=== PATIENT | female | born 1975 | race Two or more races ===

== ENCOUNTER 2022-12-29 08:47 | Outpatient (REF) | payer OTHER, SELFPAY ==
[2022-12-29 10:14] LABS: MANUAL DIFF FLAG NO
[2022-12-29 10:53] LABS: Basophils Percent Auto 0.3 % (0-2); Eosinophils Percent Auto 0.3 % (0-4); Hematocrit 39.7 % (37.0-47.0); Hemoglobin 12.8 g/dl (12.0-16.0); Imm Gran Abs Auto 0.01 X10*3/uL (0.00-0.03); Imm Gran Pct Auto 0.2 % (0.0-0.4); Lymphocytes Absolute Auto 2.8 X10*3/uL (1.2-4.9); Lymphocytes Percent Auto 47.6 % (20-40); Mean Corpuscular HGB Conc 32.2 g/dl (31.0-35.0); Mean Corpuscular Hemoglobin 28.7 pg (27.0-33.0); Mean Platelet Volume 9.7 fL (9.4-12.3); Monocytes Absolute Auto 0.4 X10*3/uL (0.1-1.2); Monocytes Percent Auto 6.1 % (2-11); Neutrophils Absolute Auto 2.7 x10*3/uL (2.0-8.3); Neutrophils Percent Auto 45.5 % (45-73); Platelet Count 355 X10*3/uL (160-400); Red Blood Count 4.46 X10*6/uL (4.20-5.50); Red Cell Distribution Width 12.9 % (11.0-16.0); White Blood Count 5.9 X10*3/uL (4.8-10.8)
[2022-12-29 11:41] LABS: Alanine Aminotransferase 15 U/L (0-31); Alkaline Phosphatase 89 U/L (39-117); Anion Gap 11 (12-20); Aspartate Amino Transferase 18 U/L (5-31); Bilirubin Total 0.7 mg/dL (0.0-1.0); Blood Urea Nitrogen 9 mg/dL (9-16); C Reactive Protein 0.28 mg/dL (< or = 0.50); Calcium 9.5 mg/dL (8.4-10.2); Carbon Dioxide 27 mmol/L (22-29); Chloride 107 mmol/L (96-108); Estimated Glomerular Filt Rate > 60; Glucose Random 91 mg/dL (60-115); Potassium 4.3 mmol/L (3.3-5.1); Rheumatoid Factor < 13.0 IU/mL (<15.0); Sodium 141 mmol/L (135-145); Total Protein 6.5 g/dL (6.5-8.0)
[2022-12-29 11:47] LABS: Erythrocyte Sedimentation Rate 14 MM/HR (0-20)
[2022-12-30 04:29] LABS: HBS Num1 0.14 mIU/mL (0-7.99); HBc Num1 0.04 S/CO (0.00-0.79); HBsAGNum1 0.45 S/CO (0.00-0.99); Hepatitis B Core Antibody Nonreactive (Nonreactive); Hepatitis B Surface Antigen Negative (Negative); ~HepC Num1 0.06 S/CO (0.00-0.79); ~Hepatitis A Antibody IgM Nonreactive (Nonreactive); ~Hepatitis B Surface Antibody NONREACTIVE (Nonreactive); ~Hepatitis C Antibody Nonreactive (Nonreactive)
[2023-01-01 00:14] LABS: TS Negative Control Passed; TS Panel A 1; TS Panel B 2; TS Positive Control Passed; TSpotTB Negative (Negative)
[2023-01-01 12:09] LABS: Prot Elec - Albumin 3.9 g/dL (3.8-4.8); Prot Elec - Alpha1 0.3 g/dL (0.2-0.3); Prot Elec - Alpha2 0.6 g/dL (0.5-0.9); Prot Elec - Beta 1 0.5 g/dL (0.4-0.6); Prot Elec - Beta 2 0.4 g/dL (0.2-0.5); Prot Elec - Gamma 0.9 g/dL (0.8-1.7); Prot Elec - Total Protein 6.6 g/dL (6.1-8.1)
[2023-01-02 12:38] LABS: IgA 244 mg/dL (47-310); IgG 1140 mg/dL (600-1640); IgM 40 mg/dL (50-300)
[2023-01-02 15:19] LABS: Cyclic Citrullinated Peptide <16 UNITS
== END 2022-12-29 08:48 | disposition home or self-care (01) ==
LOC: HO.LAB 08:47
PROVIDERS: PCP Internal Medicine; Visit Provider Student in an Organized Health Care Education/Training Program
DX: Z11.59 Encounter for screening for other viral diseases (principal); Z11.7 Encounter for testing for latent tuberculosis infection; L40.50 Arthropathic psoriasis, unspecified; M25.541 Pain in joints of right hand; M79.641 Pain in right hand; M79.642 Pain in left hand; M79.7 Fibromyalgia
CPT/HCPCS: 36415; 80053; 82784; 84165; 85025; 85652; 86140; 86200; 86334; 86431; 86481; 86704; 86706; 86709; 86803; 87340; 99202

== ENCOUNTER 2023-04-07 11:51 | Outpatient (AMB) | payer OTHER, SELFPAY ==
[2023-04-07 11:53] VITALS: BP 118/82; PULSE 78; TEMP 36.6; O2SAT 97; BMI 30.6
--- NOTE | 2023-04-07 11:53 | A.OFFVIS_ITS ---
Intake Vital Signs 04/07/23 11:53 Height 5 ft 2 in Weight 167 lb 8.821 oz BMI 30.6 BP 118/82 Blood Pressure Location Rt brachial Position Sitting Pulse 78 Pulse Source Pulse Oximeter Temp 97.9 F Temp Source Skin Pulse Oximetry (%) 97 Intake Visit Reasons: FMS/PsA Intake Note: Pt seen today for follow up. Religious Studies Professor Required: Yes Religious Studies Professor Language: Corporate Account Executive Name: Alonzo [id number] Accompanied by: Self / Same As Patient Allergies baclofen Allergy (Unknown, Verified 04/07/23 11:55) unknown latex Allergy (Unknown, Uncoded 04/07/23 11:55) Unknown Medication List - Last Reconciled 04/07/23 by Sharon Ellison MD acetaminophen 1,000 mg orally Q12H PRN; clobetasol 0.05% grams topical BID PRN doxepin 5% 1 appl topical QID dupilumab (Dupixent) 300 mg subcut Q2W gabapentin 800 mg PO TID hydroxyzine HCl 50 mg PO BEDTIME ketoconazole 2% topical 2XW meloxicam 15 mg PO DAILY pantoprazole (Protonix) 40 mg PO DAILY raloxifene 60 mg PO DAILY sertraline 100 mg PO DAILY tacrolimus 0.1% topical BID PRN trazodone 100 mg PO BEDTIME HPI HPI Comments History of Present Illness Details Patient returns for follow-up after completion of her blood work and [facility] ultrasound. Continues to feel about the same. Initial history: This is a 47-year-old female who is referred for evaluation of diffuse pain. She has a history of fibromyalgia, anxiety, depression and psoriasis. She states that she has had diffuse pain for many years. However over the last 1-2 years she has been having worsening pain in her hands. She has pain in her neck, shoulders, arms, chest, legs. Patient works in [employer], in the prepped area. She works for 5 hours, 5 days a week. Her generalized pain is generally worse on the days that she is not working. She has leg pain at night. She was diagnosed with psoriasis many years ago. She has difficulty falling asleep. States that she had a sleep study 2 years ago which was negative for sleep apnea. She is taking meloxicam 50 mg daily which is helping all her pains [facility] Medical History Anxiety BMI 33.0-33.9,adult Depression Eczema GERD (gastroesophageal reflux disease) Helicobacter pylori gastritis Hematuria, microscopic Iron deficiency Irritable bowel syndrome Lobular breast cancer Lobular carcinoma in situ (LCIS) of left breast Major depression Migraine Psoriasis Seasonal allergic rhinitis Snoring Surgical History H/O lumpectomy History of hysterectomy History of sleeve gastrectomy Hx of section Family History Mother Depression Eczema Asthma Father Diabetes Other Family history of osteoarthritis Social History Alcohol intake: never Patient Tobacco Use Status: Never used Tobacco e-Cigarette/Vaping Use: Never Used Current occupational status: employed Current occupation: works in the [employer] in [employer] Reports arthralgias and Reports stiffness Physical Exam Vital Signs: Last Vital Signs Temp 97.9 F 04/07/23 11:53 Pulse 78 04/07/23 11:53 BP 118/82 04/07/23 11:53 Pulse Ox 97 04/07/23 11:53 BMI result Body Mass Index 30.6 Const General: cooperative, healthy appearing and comfortable Nutritional Appearance: overweight Orientation/consciousness: patient oriented x3 Limitations: no limitations Resp Effort & Inspection: normal respiratory effort and able to speak in complete sentences Neuro General: patient oriented x3 Extrem Other: Bilateral wrist tenderness and pain with full flexion and extension . No swelling Left hand with 3rd and 4th extensor tendon tenderness. Second through 5th flexor tendon tenderness Right hand with Second and 3rd extensor tender tenderness Multiple tender PIPs is in the DIPs bilaterally with no swelling Left 3rd MTP tenderness Normal nailfold capillaroscopy few fibromyalgia tender points Results Reviewed Results Reviewed: X-RAY EXAM OF LOWER SPINE WITH OBLIQUES Exam Date: 03/01/2022? 3:20 PM Ordering Diagnosis: Chronic left-sided low back pain with left-sided sciatica ? ? Lumbosacral spine, 4 views. History low back pain. Vertebral bodies and disc spaces are maintained in height.? There are minimal discogenic? osteophytes at L3-4 level and mild hypertrophic changes in the facet joints at L4-5 and L5-S1? levels.? No fractures, dislocations or destructive lesions. ? CONCLUSIONS: Degenerative changes as detailed. X-RAY EXAM OF HAND, 3+ VIEWS Exam Date: 04/07/2021 10:03 AM Ordering Diagnosis: Fibromyalgia Flexor tenosynovitis of finger ? ? BILATERAL HANDS, 3 VIEWS EACH ? HISTORY: Fibromyalgia.? Flexor tenosynovitis of finger. ? PRIOR: Bilateral hands 09/19/2017. ? FINDINGS: ? There is no acute fracture, malalignment, joint effusion, soft tissue abnormality, or radiopaque foreign body in either hand. ? IMPRESSION:? Normal bilateral hands. X-RAY KNEE 3 VIEW - W/O INJURY Exam Date: 09/19/2017? 2:45 PM Ordering Diagnosis: Arthralgia, unspecified joint Fibromyalgia Other back pain, unspecified chronicity Rash ? ? BILATERAL KNEE SERIES: ? History: Knee pain ? 3 views of each knee were obtained. No arthritis, focal bone pathology or joint effusion is seen in either knee. ? Impression: Normal bilateral knee series. Labs in 2019 JUDE negative Bilateral hand and wrist MSK ultrasound 01/31? Impression: Unremarkable ultrasound examination of both hands and wrists? No synovitis, tenosynovitis or joint effusion ? Assessment & Plan Assessment & Plan (1) Bilateral hand pain: Code(s): M79.641 - Pain in right hand; M79.642 - Pain in left hand Plan: This is a 47-year-old female who presents for evaluation of diffuse pain she has history of fibromyalgia and psoriasis. Upon evaluation she has multiple tender tendons. Her hand x-rays were normal in the past. She continues to take meloxicam with some relief but continues to have pain. Comprehensive serology is unremarkable for underlying autoimmune rheumatic disease. Bilateral hand and wrist MSK ultrasound is negative for signs of inflammatory arthritis. Patient's pain might be mechanical in nature. She can not continue to take meloxicam as it seems to help her symptoms. Will follow-up in 6 months. If patient continues to have multiple tender tendons & there remains to be a suspicion of inflammatory arthritis will consider ordering a more sensitive study such as an MRI Coding Level of Care Code Est Pt Level 3 (76086) Diagnoses Bilateral hand pain M79.641; M79.642
== END 2023-04-07 12:17 | disposition home or self-care (01) ==
PROVIDERS: PCP Internal Medicine; Visit Provider Student in an Organized Health Care Education/Training Program
DX: M79.641 Pain in right hand (principal); M79.642 Pain in left hand
CPT/HCPCS: 99213

== ENCOUNTER → 2023-04-07 11:51 | Outpatient (BNVA) | payer OTHER, SELFPAY | PROVIDERS: Visit Provider Student in an Organized Health Care Education/Training Program | DX: M79.7 Fibromyalgia (principal); M79.641 Pain in right hand; M79.642 Pain in left hand; L40.50 Arthropathic psoriasis, unspecified; G89.29 Other chronic pain; M54.42 Lumbago with sciatica, left side | CPT/HCPCS: 99212 ==